=== PATIENT | female | born 1960 ===

== ENCOUNTER 2017-07-21 19:54 | Emergency (ER) | payer MEDICAID ==
[2017-07-21 20:32] VITALS: BP 126/63; PULSE 86; RESP 17; TEMP 98.2; O2SAT 97
--- NOTE | 2017-07-21 21:46 | ED PDOC ---
HPI: Back Time Seen by Provider: 07/21/17 20:44 Chief Complaint (Nursing): Back Pain Chief Complaint (Provider): Back Pain History Per: Patient History/Exam Limitations: no limitations Onset/Duration Of Symptoms: Hrs (x6) Additional Complaint(s): Karon Calhoun is a 57 year old female that presents to the ED with a chief complaint of lower back pain that began around 6 hours ago, when the patient reports she slipped and fell onto her butt. She states that she took 400 mg of Motrin 2 hours prior to arrival. Past Medical History Reviewed: Historical Data, Nursing Documentation, Vital Signs Vital Signs: Last Vital Signs Temp 98.2 F 07/21/17 20:28 Pulse 86 07/21/17 20:28 Resp 17 07/21/17 20:28 BP 126/63 07/21/17 20:28 Pulse Ox 97 07/21/17 20:28 - Family History Family History: States: Unknown Family Hx - Immunization History Hx Tetanus Toxoid Vaccination: No Hx Influenza Vaccination: No Hx Pneumococcal Vaccination: No - Home Medications Home Medications: Ambulatory Orders Medication Instructions Recorded Famotidine [Pepcid] 20 mg PO BID PRN #15 tab 02/17/15 Cyclobenzaprine [Cyclobenzaprine 10 mg PO Q8H #20 tab 07/21/17 HCl] Ibuprofen [Motrin Tab] 800 mg PO Q6H PRN #20 tab 07/21/17 - Allergies Allergies/Adverse Reactions: Allergies Allergy/AdvReac Type Severity Reaction Status Date / Time No Known Allergies Allergy Verified 02/17/15 10:26 Review of Systems ROS Statement: Except As Marked, All Systems Reviewed And Found Negative Musculoskeletal: Positive for: Back Pain (lower) Physical Exam - Reviewed Nursing Documentation Reviewed: Yes Vital Signs Reviewed: Yes - Physical Exam Appears: Positive for: Non-toxic, No Acute Distress Head Exam: Positive for: ATRAUMATIC, NORMOCEPHALIC Skin: Positive for: Normal Color, Warm Eye Exam: Positive for: Normal appearance, EOMI, PERRL Back: Positive for: Other (L-spine TTP). Negative for: Normal Inspection ((+) right leg raise) Extremity: Negative for: Deformity, Swelling Neurologic/Psych: Positive for: Alert, Oriented. Negative for: Motor/Sensory Deficits - ECG O2 Sat by Pulse Oximetry: 97 (RA) Pulse Ox Interpretation: Normal Medical Decision Making Medical Decision Making: Impression: Lower Back Pain Plan: * X-Ray L-Spine * Flexeril 10 mg PO * Ibuprofen 600 mg PO * Reevaluation Pt reports feeling better on re-evaluation. LS x-ray without acute abnormalities. Scribe Attestation: Documented by Susannah Perez, acting as a scribe for Katerin Tanner PA-C. Provider Scribe Attestation: All medical record entries made by the Scribe were at my direction and personally dictated by me. I have reviewed the chart and agree that the record accurately reflects my personal performance of the history, physical exam, medical decision making, and the department course for this patient. I have also personally directed, reviewed, and agree with the discharge instructions and disposition. Disposition - Clinical Impression Clinical Impression: Back pain - Patient ED Disposition Is Patient to be Admitted: No Counseled Patient/Family Regarding: Diagnosis, Need For Followup, Rx Given - Disposition Disposition: Routine/Home Disposition Time: 22:20 Condition: GOOD Prescriptions: Cyclobenzaprine [Cyclobenzaprine HCl] 10 mg PO Q8H #20 tab Ibuprofen [Motrin Tab] 800 mg PO Q6H PRN #20 tab PRN Reason: Pain Instructions: Sciatica (ED) Forms: [employer] (Croatian) Print Language: POLISH
--- NOTE | 2017-07-22 09:38 | RAD ---
PROCEDURE: Radiographs of the Lumbar Spine. HISTORY: back pain s/p slip and fall COMPARISON: No prior. FINDINGS: BONES: Normal alignment. No listhesis. No fracture. DISC SPACES: Unremarkable. OTHER FINDINGS: None. IMPRESSION: Unremarkable radiographs of the lumbar spine.
== END 2017-07-21 22:25 | disposition home or self-care (01) ==
LOC: H.ER 19:54
DX: M54.9 Dorsalgia, unspecified (principal)